=== PATIENT | male | born 1970 | race American Indian/Alaskan Native ===

== ENCOUNTER 2016-11-20 12:44 | Day surgery (SDC) | payer MEDICAID ==
[2016-11-20] MEDS ORDERED: NACL 0.9% 1000 ML 1,000 ML IV SCH (14:00)
[2016-11-20] MEDS ORDERED: DIPRIVAN 10 MG/ML IV ONE ×2 (18:47)
[2016-11-20] MEDS ORDERED: WATER FOR IRRIG STERILE ONE (19:06)
--- NOTE | 2016-11-20 19:31 | Operative Report ---
Operative Report Operative Report: Date of procedure: Procedure: Colonoscopy Attending physician: Serg Keen MD Probation Supervisor: Serg Keen MD Indication: Patient is a 46-year-old male who presented history of recurrent rectal bleeding. Consent: Informed consent was obtained after advising the patient and family regarding nature of this procedure, its indications, potential benefits as well as possible complications including but not limited to bleeding perforation and adverse reaction to medication, infection as well as other cardiopulmonary complications. An informed written and verbal consent was then obtained after due opportunity was provided for questions and answers. Monitoring: Patient was monitored continuously with pulse oximetry and electrocardiographic recordings as well as blood pressure recordings. Vital signs remained stable throughout this procedure with no untoward events. Preoperative assessment: Patient was assessed immediately prior to this procedure for capacity to tolerate monitored anesthesia care and moderate sedation as well as general anesthesia. Patient's ASA classification is 2, Mallampati class is 2, Hyomental distance is 3. Instrument: Teez.mobin Video colonoscope Medications: Propofol given intravenously in divided doses for details refer to anesthesia Description of procedure: Patient was placed in the left lateral decubitus position after achieving sedation, a digital rectal examination was performed following which the colonoscope was introduced into the anal verge and advanced to the cecum which was identified by the cecal valve, the appendiceal orifice, as well as by the cecal strap and direct transillumination. The colonoscope was subsequently withdrawn with careful inspection of all mucosal surfaces. Patient tolerated this procedure well and was subsequently taken to the recovery room. The following findings were noted. Findings: Patient had thick liquid at densely adherent stool in sections of the colon which was vigorously irrigated as much as possible to optimize visualization of the colon. There were no gross mucosal abnormalities seen. On the retroflex view at the anal verge, patient had internal hemorrhoids. Patient also had hypertrophied anal papilla on the retroflex view at the anal verge. Impression: Internal hemorrhoids with hypertrophied anal papilla. Retained stool Plan: High-fiber diet As needed stool softeners. Patient's rectal bleeding probably hemorrhoidal in etiology and will use as needed stool softeners. Additional steps will be taken in follow-up.
--- NOTE | 2016-11-20 19:32 | Anesthesia Day of Surgery ---
Anesthesia Day of Surgery - Day of Surgery Patient Examined: Yes Patient H&P Reviewed: Yes Patient is NPO: Yes
--- NOTE | 2016-11-20 19:32 | Discharge Summary ---
Short Stay Discharge Plan Activity: advance as tolerated Diet: regular Follow up with: TUTU POWELL MD [Primary Care Provider] - 7 Days
--- NOTE | 2016-11-20 19:33 | Anesthesia Consultation ---
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
[2016-11-20 20:55] VITALS: BP 133/72
== END 2016-11-20 12:45 | disposition home or self-care (01) ==
LOC: GIO 12:44
PROVIDERS: ATTEND Internal Medicine Gastroenterology
DX: K62.89 Other specified diseases of anus and rectum (principal); K64.8 Other hemorrhoids; M19.90 Unspecified osteoarthritis, unspecified site; D64.9 Anemia, unspecified; I10 Essential (primary) hypertension; Z79.899 Other long term (current) drug therapy; Z87.891 Personal history of nicotine dependence; Z72.89 Other problems related to lifestyle
CPT/HCPCS: 45378; J2704; J7030